=== PATIENT | female | born 1935 | race Caucasian/White ===

== ENCOUNTER 2018-01-05 01:57 | Outpatient (CLI) | payer MEDICARE, SELFPAY ==
[2018-01-05 13:08] LABS: CREATININE 0.71 mg/dL (0.55-1.02); Cholesterol 138 mg/dL (50-200); HDL Cholesterol 49 mg/dL (40-60); LDL CHOLESTEROL 86 mg/dL (<100); Potassium 4.3 mmol/L (3.5-5.1); Triglyceride 53 mg/dL (30-150)
== END 2018-01-05 02:17 ==
PROVIDERS: PCP Family Medicine; Visit Provider Family Medicine
DX: I10 Essential (primary) hypertension (principal)
CPT/HCPCS: 36415; 80061; 83721; 82565; 84132